=== PATIENT | male | born 1940 | race Caucasian/White ===

== ENCOUNTER 2019-12-21 14:39 | Emergency (ER) | payer MEDICARE, OTHER ==
[2019-12-21] MEDS ORDERED: Enoxaparin Sodium 30 MG/0.3 ML SYRINGE ONE (15:43)
[2019-12-21] MEDS ORDERED: Enoxaparin Sodium 100 MG/ML SYRINGE ONE (15:43)
[2019-12-21 15:52] LABS: ALT (SGPT) 34 U/L (8-55); AST (SGOT) 39 U/L (5-34); Alkaline Phosphatase 97 U/L (40-110); Anion Gap 18 mmol/L (10-20); BUN (Urea Nitrogen) 31 mg/dL (8.4-25.7); Bilirubin, Total 0.6 mg/dL (0.2-1.2); CK (CPK) 127 U/L (30-200); Calc. Creatinine Clearance 0 mL/min (70-130); Calcium 9.2 mg/dL (7.8-10.44); Carbon Dioxide 24 mmol/L (23-31); Chloride 98 mmol/L (98-107); Estimated GFR-MDRD 46; Globulin 3.8 g/dL (2.4-3.5); Glucose 129 mg/dL (83-110); Potassium 3.9 mmol/L (3.5-5.1); Protein, Total 7.8 g/dL (5.8-8.1); Sodium 136 mmol/L (136-145)
[2019-12-21 16:00] LABS: Band 10 % (5-11); Hemoglobin 15.4 g/dL (14.0-18.0); Lymphocytes 10 % (21-51); MDiff Complete? YES; Mean Corpuscular HGB CONC 32.9 g/dL (32.0-36.0); Mean Corpuscular Hemoglobin 30.8 pg (27.0-31.0); Mean Corpuscular Volume 93.6 fL (78.0-98.0); Mean Platelet Volume 9.2 fL (7.4-10.4); Monocytes 16 % (0-10); Neutrophil 62 % (42-75); Platelet Count 253 thou/uL (130-400); Platelet Morphology Comment Appears Adequate; RBC Distribution Width 12.2 % (11.5-14.5); Reactive Lymphocytes 2 % (0-10); Red Blood Cell (RBC) Count 4.98 mill/uL (4.70-6.10); White Blood Cell (WBC) Count 9.3 thou/uL (4.8-10.8)
--- NOTE | 2019-12-21 17:31 | RAD ---
PORTABLE CHEST: 12/21/19 HISTORY: Dyspnea. COMPARISON: 12/06/19 exam. Heart size and mediastinum within normal limits. Chronic appearing lung changes are seen. No definite confluent process. IMPRESSION: Chronic appearing lung change. POS: [facility]
== END 2019-12-21 18:45 | disposition short-term general hospital (02) ==
LOC: MADERS 14:39
DX: R06.00 Dyspnea, unspecified (principal); R05 Cough; E78.5 Hyperlipidemia, unspecified; E78.00 Pure hypercholesterolemia, unspecified; E11.9 Type 2 diabetes mellitus without complications; Z79.899 Other long term (current) drug therapy
CPT/HCPCS: 36415; 71045; 80053; 82550; 83880; 84484; 85025; 85379; 93005; 94760; 96372; J1650